=== PATIENT | male | born 1935 | race Asian ===

== ENCOUNTER → 2018-10-09 | Outpatient (CLI) | payer MEDICARE, OTHER ==
[~2018-10-09] MED LIST: AMLO5TAB13 PO; NAP500T GT; SIMV-8 PO
== END | disposition home or self-care (01) ==
LOC: Rad HDHVI 09:57
PROVIDERS: ATTEND Internal Medicine Cardiovascular Disease
DX: I11.9 Hypertensive heart disease without heart failure (principal); R07.89 Other chest pain
CPT/HCPCS: 93306

== ENCOUNTER → 2018-11-10 | Outpatient (CLI) | payer MEDICARE, OTHER ==
[~2018-11-10] VITALS: Ht 172.7 cm; Wt 77.1 kg
== END | disposition home or self-care (01) ==
LOC: Rad HDHVI 09:56
PROVIDERS: ATTEND Internal Medicine Cardiovascular Disease
DX: E78.00 Pure hypercholesterolemia, unspecified (principal); I11.9 Hypertensive heart disease without heart failure
CPT/HCPCS: 78452; 93017; 96374; A9500

== ENCOUNTER → 2019-03-30 | Outpatient (CLI) | payer MEDICARE, OTHER ==
[~2019-03-30] MED LIST changes: -AMLO5TAB13 PO; +AMLO5TAB15 PO
== END | disposition home or self-care (01) ==
LOC: Rad HDHVI 10:00
PROVIDERS: ATTEND Internal Medicine Cardiovascular Disease
DX: K42.9 Umbilical hernia without obstruction or gangrene (principal); K57.30 Diverticulosis of large intestine without perforation or abscess without bleeding
CPT/HCPCS: 74176

== ENCOUNTER → 2020-06-09 | Outpatient (CLI) | payer MEDICARE, OTHER ==
[2020-06-09 12:00] LABS: Basophils # (auto) 0.1 10 ^3/uL (0-0.2); Basophils % (auto) 1.5 % (0.0-2.0); Eosinophils # (auto) 0.6 10 ^3/uL (0-0.8); Eosinophils % (auto) 9.1 % (0.0-7.0); Hematocrit 40.2 % (41.0-53.0); Hemoglobin 13.4 g/dL (13.5-17.5); Lymphocytes # (auto) 1.9 10 ^3/uL (0.4-5.4); Lymphocytes % (auto) 29.6 % (10.0-50.0); Mean Corpuscular Hemoglobin 33.4 pg (28.0-32.0); Mean Corpuscular Hgb Conc. 33.2 g/dL (32.0-36.0); Mean Corpuscular Volume 100.6 fL (80.0-100.0); Monocytes # (auto) 0.6 10 ^3/uL (0-1.3); Monocytes % (auto) 10.1 % (0.0-12.0); Neutrophils # (auto) 3.1 10 ^3/uL (1.6-8.6); Neutrophils % (auto) 49.7 % (37.0-80.0); Nucleated Red Blood Cells % 0.1 %; Platelet Count (auto) 265 10^3/uL (140-450); Red Cell Distribution Width 13.1 % (11.8-14.3); White Blood Cell 6.3 10^3/uL (4.4-10.8)
[2020-06-09 12:03] LABS: Urine Blood Negative /uL (Negative); Urine Specific Gravity 1.016 (1.001-1.035)
[2020-06-09 14:02] LABS: Alanine Aminotransferase 29 U/L (16-61); Alkaline Phosphatase 42 U/L (45-117); Anion Gap 7 (5-15); Aspartate Aminotransferase 19 U/L (15-37); Blood Urea Nitrogen 24 mg/dL (7-18); Carbon Dioxide 27 mmol/L (21-32); Chloride 105 mmol/L (98-107); GFR African American 49 mL/min; GFR Non-African American 41 mL/min; Glucose 99 mg/dL (74-106); Potassium 3.9 mmol/L (3.5-5.1); Sodium 139 mmol/L (136-145)
[2020-06-09 14:03] LABS: Albumin 4.2 g/dL (3.4-5.0); Bilirubin, Total 0.7 mg/dL (0.2-1.0); Calcium 9.5 mg/dL (8.5-10.1); Cholesterol 153 mg/dL (< 200); HDL Cholesterol 66 mg/dL (40-59); LDL Cholesterol 77 mg/dL (< 100); Total Protein 8.1 g/dL (6.4-8.2); Triglycerides 156 mg/dL (< 150)
[2020-06-09 15:02] LABS: Free T4 (Free Thyroxine) 0.87 ng/dL (0.89-1.76)
[2020-06-09 15:03] LABS: Prostate Specific Antigen 0.08 ng/mL (0.0-4.0)
== END | disposition home or self-care (01) ==
LOC: LAB 09:28
PROVIDERS: ATTEND Internal Medicine Cardiovascular Disease
DX: C61 Malignant neoplasm of prostate (principal); D51.3 Other dietary vitamin B12 deficiency anemia; E11.9 Type 2 diabetes mellitus without complications; D64.9 Anemia, unspecified; E55.9 Vitamin D deficiency, unspecified; I10 Essential (primary) hypertension; R00.2 Palpitations; R53.1 Weakness; R30.0 Dysuria
CPT/HCPCS: 36415; 80053; 80061; 81003; 82306; 82607; 83036; 84153; 84403; 84439; 84443; 85025

== ENCOUNTER → 2020-07-21 | Outpatient (CLI) | payer MEDICARE, OTHER | END | disposition home or self-care (01) | LOC: Rad HDHVI 11:00 | PROVIDERS: ATTEND Internal Medicine Cardiovascular Disease | DX: I08.0 Rheumatic disorders of both mitral and aortic valves (principal); R07.89 Other chest pain; R06.02 Shortness of breath | CPT/HCPCS: 93306 ==

== ENCOUNTER → 2020-08-06 | Outpatient (CLI) | payer MEDICARE, OTHER ==
[~2020-08-06] MED LIST changes: +AMLO-489 PO; -AMLO5TAB15 PO; +KETOROLAC TROMETH 30 MG/ML 1ML VIAL IV ONE; +KETOROLAC TROMETH 30 MG/ML 1ML VIAL IV PRN; +KETOROLAC TROMETH 60MG/2ML VIAL ONE; +PIPERACILLIN-TAZO 4.5GM 100 ML IV ONE; +READI-CAT 2 (BARIUM SULF)(VANILLA SMOOTHIE) 450ML ONE
[2020-08-06 10:35] VITALS: BP 162/86
[2020-08-06 16:00] VITALS: BP 151/70
== END | disposition home or self-care (01) ==
LOC: Rad HDHVI 10:36
PROVIDERS: ATTEND Internal Medicine Cardiovascular Disease
DX: K57.30 Diverticulosis of large intestine without perforation or abscess without bleeding (principal); K42.9 Umbilical hernia without obstruction or gangrene; R59.0 Localized enlarged lymph nodes
CPT/HCPCS: 74176; 96365; 96366; 96375; G0463; J1885; J2543

== ENCOUNTER 2020-08-21 09:22 | Inpatient (IN) | payer MEDICARE, OTHER ==
[~2020-08-21] VITALS: Ht 172.7 cm; Wt 70.6 kg
[~2020-08-21 09:22] MED LIST changes: -KETOROLAC TROMETH 30 MG/ML 1ML VIAL IV ONE; -KETOROLAC TROMETH 30 MG/ML 1ML VIAL IV PRN; -KETOROLAC TROMETH 60MG/2ML VIAL ONE; -PIPERACILLIN-TAZO 4.5GM 100 ML IV ONE; -READI-CAT 2 (BARIUM SULF)(VANILLA SMOOTHIE) 450ML ONE
[2020-08-21 10:13] LABS: Basophils # (auto) 0 10 ^3/uL (0-0.2); Eosinophils # (auto) 0 10 ^3/uL (0-0.8); Hemoglobin 13.1 g/dL (13.5-17.5); Monocytes % (auto) 6.5 % (0.0-12.0); Red Cell Distribution Width 13.4 % (11.8-14.3)
[2020-08-21 10:15] LABS: Basophils % (auto) 0.5 % (0.0-2.0); Hematocrit 38.9 % (41.0-53.0); Lymphocytes # (auto) 0.6 10 ^3/uL (0.4-5.4); Lymphocytes % (auto) 6.6 % (10.0-50.0); Mean Corpuscular Hemoglobin 33.6 pg (28.0-32.0); Mean Corpuscular Hgb Conc. 33.8 g/dL (32.0-36.0); Mean Corpuscular Volume 99.5 fL (80.0-100.0); Monocytes # (auto) 0.6 10 ^3/uL (0-1.3); Neutrophils # (auto) 7.3 10 ^3/uL (1.6-8.6); Neutrophils % (auto) 86.4 % (37.0-80.0); Platelet Count (auto) 222 10^3/uL (140-450); Red Blood Cells 3.91 10^6/uL (4.5-5.90); White Blood Cell 8.4 10^3/uL (4.4-10.8)
[2020-08-21 10:32] LABS: INR 1.04 (0.9-1.15); Partial Thromboplastin Time 32.9 sec (23.0-31.2)
[2020-08-21 10:41] LABS: Albumin 3.6 g/dL (3.4-5.0); Calcium 8.6 mg/dL (8.5-10.1); Magnesium 2.5 mg/dL (1.6-2.6); Potassium 3.8 mmol/L (3.5-5.1)
[2020-08-21 10:51] LABS: BUN/Creatinine Ratio 15.9; Bilirubin, Total 0.5 mg/dL (0.2-1.0); CRP High Sensitivity 8.54 mg/dL (< 0.3); Total Protein 8.4 g/dL (6.4-8.2)
[2020-08-21] MEDS ORDERED: ACETAMINOPHEN 325 MG TAB PO PRN (11:00)
[2020-08-21] MEDS ORDERED: AZITHROMYCIN 500MG/ 250ML 250 ML IV ONE (11:00)
[2020-08-21] MEDS ORDERED: cefTRIAXone 1GM/50ML D5W 50 ML IV ONE (11:00)
[2020-08-21 11:26] LABS: Urine Bacteria NONE SEEN /hpf (None Seen); Urine Blood Negative /uL (Negative); Urine Specific Gravity 1.014 (1.001-1.035); Urine WBC 6 /hpf (0 - 3); Urine WBC Clumps PRESENT /hpf (None Seen)
[2020-08-21] MEDS ORDERED: LIDOCAINE 2% (LOCAL ANESTH.) PF 5ml SDV ONE (13:05)
[2020-08-21] MEDS ORDERED: cefTRIAXone SOD 1,000 MG VL ONE (13:05)
[2020-08-21] MEDS ORDERED: cefTRIAXone W LIDOCAINE 1 GM IM IM ONE (13:15)
[2020-08-21] MEDS ORDERED: NITROGLYCERIN 0.4 MG SL TAB SL PRN (14:00)
[2020-08-21] MEDS ORDERED: MORPHINE SULF INJ 2 MG/ML SYRINGE 1ML IV PRN (14:00)
[2020-08-21] MEDS ORDERED: ASCORBIC ACID 500 MG TAB PO ONE (14:15)
[2020-08-21] MEDS ORDERED: IVERMECTIN 3 MG TAB PO SCH (15:00)
[2020-08-21 16:00] VITALS: BP 122/68
[2020-08-21] MEDS: ACYCLOVIR 400 MG TAB PO SCH ×2 (17:49→21:28)
[2020-08-21] MEDS: DOXYCYCLINE 100 MG TAB/CAP PO SCH (21:28)
[2020-08-21] MEDS: BUDESONIDE (INHALATION) 0.5 MG/2 ML NEB NEB SCH (22:41)
[2020-08-21] MEDS: HYDROcodone-ACET 10/325MG TAB PO PRN (23:19)
[2020-08-22] VITALS: BP 133/68
[2020-08-22] MEDS: ACYCLOVIR 400 MG TAB PO SCH ×5 (05:20→22:04)
[2020-08-22] MEDS: HYDROcodone-ACET 10/325MG TAB PO PRN ×2 (05:44→20:43)
[2020-08-22] MEDS: BUDESONIDE (INHALATION) 0.5 MG/2 ML NEB NEB SCH (07:25)
[2020-08-22 08:00] VITALS: BP 148/83
[2020-08-22] MEDS: DOXYCYCLINE 100 MG TAB/CAP PO SCH ×2 (09:39→22:04)
[2020-08-22] MEDS: ZINC SULFATE 220mg CAP or TAB PO SCH (09:39)
[2020-08-22] MEDS: CHOLECALCIFEROL (VITD3) 2,000 UNIT CAP/TAB PO SCH (09:40)
[2020-08-22] MEDS ORDERED: PATIENTS OWN MEDICATION PO SCH (10:00)
[2020-08-22 16:00] VITALS: BP 129/75
[2020-08-22] MEDS ORDERED: REMDESIVIR PER PHARMACY 0 ML IV SCH (16:45)
[2020-08-22] MEDS ORDERED: REMDESIVIR 200 MG in NS 210ml LOADING DOSE ADULT IV ONE (20:00)
[2020-08-22] MEDS: BUDESONIDE (INHALATION) 180 MCG IH IN SCH (22:00)
[2020-08-22] MEDS ORDERED: PATIENTS OWN MEDICATION (PULMICORT 360 MCG) IN SCH (22:00)
[2020-08-23] VITALS: BP 136/75
[2020-08-23] MEDS: ACYCLOVIR 400 MG TAB PO SCH ×5 (06:23→22:17)
[2020-08-23] MEDS: HYDROcodone-ACET 10/325MG TAB PO PRN ×2 (06:23→12:37)
[2020-08-23 07:06] LABS: Potassium 3.2 mmol/L (3.5-5.1)
[2020-08-23 07:13] LABS: Albumin 2.9 g/dL (3.4-5.0); BUN/Creatinine Ratio 22.4; Bilirubin, Total 0.8 mg/dL (0.2-1.0); Calcium 8.1 mg/dL (8.5-10.1); Total Protein 7.5 g/dL (6.4-8.2)
[2020-08-23 07:32] VITALS: BP 127/64
[2020-08-23] MEDS: DOXYCYCLINE 100 MG TAB/CAP PO SCH ×2 (09:46→22:17)
[2020-08-23] MEDS: CHOLECALCIFEROL (VITD3) 2,000 UNIT CAP/TAB PO SCH (09:46)
[2020-08-23] MEDS: ZINC SULFATE 220mg CAP or TAB PO SCH (09:46)
[2020-08-23] MEDS: IVERMECTIN 3 MG TAB PO SCH (09:47)
[2020-08-23] MEDS: BUDESONIDE (INHALATION) 180 MCG IH IN SCH ×2 (10:00→18:53)
[2020-08-23] MEDS: REMDESIVIR 100mg 100 MG in SODIUM CHL 0.9% 230 ML IV SCH (14:41)
[2020-08-23 16:00] VITALS: BP 143/75
[2020-08-24] VITALS: BP 137/77
[2020-08-24] MEDS: ACYCLOVIR 400 MG TAB PO SCH ×5 (06:40→21:29)
[2020-08-24 07:40] LABS: Albumin 2.7 g/dL (3.4-5.0); BUN/Creatinine Ratio 25.5; Calcium 8.4 mg/dL (8.5-10.1); Potassium 3.3 mmol/L (3.5-5.1)
[2020-08-24 07:43] LABS: Bilirubin, Total 1.1 mg/dL (0.2-1.0); Total Protein 7.1 g/dL (6.4-8.2)
[2020-08-24 08:00] VITALS: BP 127/81
[2020-08-24] MEDS: IVERMECTIN 3 MG TAB PO SCH (09:39)
[2020-08-24] MEDS: ZINC SULFATE 220mg CAP or TAB PO SCH (09:39)
[2020-08-24] MEDS: DOXYCYCLINE 100 MG TAB/CAP PO SCH ×2 (09:41→21:30)
[2020-08-24] MEDS: CHOLECALCIFEROL (VITD3) 2,000 UNIT CAP/TAB PO SCH (09:41)
[2020-08-24] MEDS: BUDESONIDE (INHALATION) 180 MCG IH IN SCH ×2 (11:00→21:02)
[2020-08-24] MEDS ORDERED: LABETALOL HCL 5 MG/ML 4ML SYRINGE IV ONE ×2 (11:55→12:00)
[2020-08-24] MEDS ORDERED: METOPROLOL TARTRATE 50 MG TAB PO ONE (12:15)
[2020-08-24] MEDS: REMDESIVIR 100mg 100 MG in SODIUM CHL 0.9% 230 ML IV SCH (13:59)
[2020-08-24 16:02] VITALS: BP 114/66
[2020-08-24] MEDS: IPRATROPIUM BROM 0.5 MG/2.5ML INH SOL NEB SCH (21:01)
[2020-08-25] VITALS: BP 136/75
[2020-08-25] MEDS: LORazepam 2MG/ML-1ML VIAL IV PRN ×2 (00:44→22:01)
[2020-08-25] MEDS: ACYCLOVIR 400 MG TAB PO SCH ×5 (06:00→21:40)
[2020-08-25] MEDS: IPRATROPIUM BROM 0.5 MG/2.5ML INH SOL NEB SCH ×3 (06:25→19:11)
[2020-08-25] MEDS: BUDESONIDE (INHALATION) 180 MCG IH IN SCH ×2 (06:25→19:17)
[2020-08-25 07:17] LABS: Basophils # (auto) 0 10 ^3/uL (0-0.2); Basophils % (auto) 0.1 % (0.0-2.0); Eosinophils # (auto) 0 10 ^3/uL (0-0.8)
[2020-08-25 07:20] LABS: Hematocrit 40.1 % (41.0-53.0); Hemoglobin 13.6 g/dL (13.5-17.5); Lymphocytes # (auto) 0.8 10 ^3/uL (0.4-5.4); Lymphocytes % (auto) 8.3 % (10.0-50.0); Mean Corpuscular Hemoglobin 33.3 pg (28.0-32.0); Mean Corpuscular Hgb Conc. 33.9 g/dL (32.0-36.0); Mean Corpuscular Volume 98.2 fL (80.0-100.0); Monocytes # (auto) 0.8 10 ^3/uL (0-1.3); Monocytes % (auto) 7.8 % (0.0-12.0); Neutrophils # (auto) 8.4 10 ^3/uL (1.6-8.6); Neutrophils % (auto) 83.8 % (37.0-80.0); Platelet Count (auto) 262 10^3/uL (140-450); Red Blood Cells 4.08 10^6/uL (4.5-5.90); Red Cell Distribution Width 13.2 % (11.8-14.3)
[2020-08-25 07:30] VITALS: BP 122/76
[2020-08-25 07:47] LABS: Potassium 3.4 mmol/L (3.5-5.1)
[2020-08-25 08:05] LABS: Albumin 2.9 g/dL (3.4-5.0); Bilirubin, Total 1.2 mg/dL (0.2-1.0); Calcium 8.6 mg/dL (8.5-10.1); Total Protein 7.6 g/dL (6.4-8.2)
[2020-08-25] MEDS: ZINC SULFATE 220mg CAP or TAB PO SCH (09:57)
[2020-08-25] MEDS: DexAMETHasone SOD PHOS 10MG/1ML VIAL INJ IV SCH (09:57)
[2020-08-25] MEDS: IVERMECTIN 3 MG TAB PO SCH (09:58)
[2020-08-25] MEDS: DOXYCYCLINE 100 MG TAB/CAP PO SCH ×2 (09:59→21:40)
[2020-08-25] MEDS: CHOLECALCIFEROL (VITD3) 2,000 UNIT CAP/TAB PO SCH (10:00)
[2020-08-25] MEDS: REMDESIVIR 100mg 100 MG in SODIUM CHL 0.9% 230 ML IV SCH (15:18)
[2020-08-25 15:33] VITALS: BP 120/74
[2020-08-25] MEDS ORDERED: POTASSIUM EFFERVESENT TAB 25 MEQ GT ONE (15:45)
[2020-08-26] VITALS: BP 143/88
[2020-08-26] MEDS: IPRATROPIUM BROM 0.5 MG/2.5ML INH SOL NEB SCH ×2 (06:00→14:00)
[2020-08-26] MEDS: ACYCLOVIR 400 MG TAB PO SCH ×5 (06:25→21:20)
[2020-08-26] MEDS: BUDESONIDE (INHALATION) 180 MCG IH IN SCH ×2 (06:30→19:53)
[2020-08-26 08:00] VITALS: BP 140/66
[2020-08-26 08:39] LABS: Potassium 3.5 mmol/L (3.5-5.1)
[2020-08-26 08:45] LABS: Albumin 2.7 g/dL (3.4-5.0); BUN/Creatinine Ratio 33.8; Calcium 8.6 mg/dL (8.5-10.1); Total Protein 7.2 g/dL (6.4-8.2)
[2020-08-26] MEDS: CHOLECALCIFEROL (VITD3) 2,000 UNIT CAP/TAB PO SCH (10:14)
[2020-08-26] MEDS: DOXYCYCLINE 100 MG TAB/CAP PO SCH (10:14)
[2020-08-26] MEDS: DexAMETHasone SOD PHOS 10MG/1ML VIAL INJ IV SCH (10:15)
[2020-08-26] MEDS: ZINC SULFATE 220mg CAP or TAB PO SCH (10:15)
[2020-08-26] MEDS: IVERMECTIN 3 MG TAB PO SCH (10:15)
[2020-08-26 13:00] VITALS: BP 128/69
[2020-08-26 16:00] VITALS: BP 121/70
[2020-08-26] MEDS: REMDESIVIR 100mg 100 MG in SODIUM CHL 0.9% 230 ML IV SCH (16:33)
[2020-08-26 22:00] VITALS: BP 148/78
[2020-08-27] VITALS (8 sets, daily range): BP systolic 130–156; BP diastolic 70–89
[2020-08-27] MEDS: ACYCLOVIR 400 MG TAB PO SCH ×5 (05:52→21:12)
[2020-08-27] MEDS: IPRATROPIUM BROM 0.5 MG/2.5ML INH SOL NEB SCH ×3 (06:05→13:15)
[2020-08-27] MEDS: BUDESONIDE (INHALATION) 180 MCG IH IN SCH ×2 (06:15→19:14)
[2020-08-27] MEDS: DexAMETHasone SOD PHOS 10MG/1ML VIAL INJ IV SCH (09:39)
[2020-08-27] MEDS: ZINC SULFATE 220mg CAP or TAB PO SCH (09:39)
[2020-08-27] MEDS: IVERMECTIN 3 MG TAB PO SCH (09:41)
[2020-08-27] MEDS: CHOLECALCIFEROL (VITD3) 2,000 UNIT CAP/TAB PO SCH (09:42)
[2020-08-27] MEDS: HYDROcodone-ACET 10/325MG TAB PO PRN (21:12)
[2020-08-27] MEDS: LORazepam 2MG/ML-1ML VIAL IV PRN (22:10)
[2020-08-27] MEDS ORDERED: ALPR0.25 PO (23:35)
[2020-08-28 05:22] VITALS: BP 118/67
[2020-08-28] MEDS: ACYCLOVIR 400 MG TAB PO SCH ×5 (05:29→22:16)
[2020-08-28] MEDS: IPRATROPIUM BROM 0.5 MG/2.5ML INH SOL NEB SCH ×3 (06:06→14:04)
[2020-08-28] MEDS: BUDESONIDE (INHALATION) 180 MCG IH IN SCH ×3 (06:06→19:24)
[2020-08-28 06:43] LABS: Basophils # (auto) 0 10 ^3/uL (0-0.2); Basophils % (auto) 0.1 % (0.0-2.0); Eosinophils # (auto) 0 10 ^3/uL (0-0.8); Hematocrit 36.7 % (41.0-53.0); Hemoglobin 12.4 g/dL (13.5-17.5); Lymphocytes # (auto) 0.6 10 ^3/uL (0.4-5.4); Lymphocytes % (auto) 5.5 % (10.0-50.0); Mean Corpuscular Hemoglobin 33.6 pg (28.0-32.0); Mean Corpuscular Hgb Conc. 33.7 g/dL (32.0-36.0); Mean Corpuscular Volume 99.7 fL (80.0-100.0); Monocytes % (auto) 10.1 % (0.0-12.0); Neutrophils # (auto) 8.7 10 ^3/uL (1.6-8.6); Neutrophils % (auto) 84.3 % (37.0-80.0); Nucleated Red Blood Cells % 0.2 %; Platelet Count (auto) 287 10^3/uL (140-450); Red Blood Cells 3.68 10^6/uL (4.5-5.90); Red Cell Distribution Width 13.3 % (11.8-14.3); White Blood Cell 10.3 10^3/uL (4.4-10.8)
[2020-08-28 06:59] LABS: Albumin 2.6 g/dL (3.4-5.0); Calcium 8.3 mg/dL (8.5-10.1); Potassium 3.6 mmol/L (3.5-5.1)
[2020-08-28 07:03] LABS: BUN/Creatinine Ratio 33.3; Bilirubin, Total 1.2 mg/dL (0.2-1.0); Total Protein 6.8 g/dL (6.4-8.2)
[2020-08-28 09:00] VITALS: BP 140/79
[2020-08-28] MEDS: ZINC SULFATE 220mg CAP or TAB PO SCH (10:16)
[2020-08-28] MEDS: IVERMECTIN 3 MG TAB PO SCH (10:16)
[2020-08-28] MEDS: DexAMETHasone SOD PHOS 10MG/1ML VIAL INJ IV SCH (10:16)
[2020-08-28] MEDS: CHOLECALCIFEROL (VITD3) 2,000 UNIT CAP/TAB PO SCH (10:17)
[2020-08-28 12:53] VITALS: BP 144/80
[2020-08-28 17:00] VITALS: BP 132/85
[2020-08-28 20:00] VITALS: BP 128/85
[2020-08-29 05:00] VITALS: BP 149/89
[2020-08-29] MEDS: IPRATROPIUM BROM 0.5 MG/2.5ML INH SOL NEB SCH ×3 (06:03→19:35)
[2020-08-29] MEDS: ACYCLOVIR 400 MG TAB PO SCH ×5 (06:35→21:16)
[2020-08-29 09:00] VITALS: BP 127/74
[2020-08-29] MEDS: IVERMECTIN 3 MG TAB PO SCH (09:36)
[2020-08-29] MEDS: ZINC SULFATE 220mg CAP or TAB PO SCH (09:36)
[2020-08-29] MEDS: CHOLECALCIFEROL (VITD3) 2,000 UNIT CAP/TAB PO SCH (09:36)
[2020-08-29] MEDS: DexAMETHasone SOD PHOS 10MG/1ML VIAL INJ IV SCH (09:37)
[2020-08-29] MEDS: ALPRAZolam 0.25 MG TAB PO PRN ×2 (10:57→21:16)
[2020-08-29 13:00] VITALS: BP 135/90
[2020-08-29 16:18] VITALS: BP 135/90
[2020-08-29 17:00] VITALS: BP 117/75
[2020-08-29] MEDS: BUDESONIDE (INHALATION) 180 MCG IH IN SCH (18:58)
[2020-08-29 20:00] VITALS: BP 133/85
[2020-08-30] MEDS: ALPRAZolam 0.25 MG TAB PO PRN ×2 (04:04→09:30)
[2020-08-30 05:00] VITALS: BP 143/83
[2020-08-30] MEDS: ACYCLOVIR 400 MG TAB PO SCH ×5 (05:33→21:33)
[2020-08-30] MEDS: IPRATROPIUM BROM 0.5 MG/2.5ML INH SOL NEB SCH ×2 (07:15→19:14)
[2020-08-30] MEDS: BUDESONIDE (INHALATION) 180 MCG IH IN SCH ×2 (07:15→19:15)
[2020-08-30 09:00] VITALS: BP 140/86
[2020-08-30] MEDS: CHOLECALCIFEROL (VITD3) 2,000 UNIT CAP/TAB PO SCH (09:22)
[2020-08-30] MEDS: ZINC SULFATE 220mg CAP or TAB PO SCH (09:23)
[2020-08-30] MEDS: DexAMETHasone SOD PHOS 10MG/1ML VIAL INJ IV SCH (09:30)
[2020-08-30 13:00] VITALS: BP 135/81
[2020-08-30 17:00] VITALS: BP 131/74
[2020-08-30 20:00] VITALS: BP 134/75
[2020-08-31] MEDS: ALPRAZolam 0.25 MG TAB PO PRN ×3 (04:22→21:12)
[2020-08-31 05:00] VITALS: BP 154/89
[2020-08-31] MEDS: ACYCLOVIR 400 MG TAB PO SCH ×5 (05:40→21:12)
[2020-08-31] MEDS: IPRATROPIUM BROM 0.5 MG/2.5ML INH SOL NEB SCH ×3 (06:30→22:15)
[2020-08-31] MEDS: BUDESONIDE (INHALATION) 180 MCG IH IN SCH ×2 (06:30→22:15)
[2020-08-31 08:57] VITALS: BP 150/79
[2020-08-31] MEDS: ZINC SULFATE 220mg CAP or TAB PO SCH (09:32)
[2020-08-31] MEDS: CHOLECALCIFEROL (VITD3) 2,000 UNIT CAP/TAB PO SCH (09:32)
[2020-08-31] MEDS: DexAMETHasone SOD PHOS 10MG/1ML VIAL INJ IV SCH (09:53)
[2020-08-31 13:00] VITALS: BP 149/78
[2020-08-31 14:21] LABS: Basophils # (auto) 0 10 ^3/uL (0-0.2); Basophils % (auto) 0.4 % (0.0-2.0); Eosinophils # (auto) 0 10 ^3/uL (0-0.8); Eosinophils % (auto) 0.1 % (0.0-7.0); Hematocrit 35.8 % (41.0-53.0); Hemoglobin 11.9 g/dL (13.5-17.5); Lymphocytes # (auto) 0.3 10 ^3/uL (0.4-5.4); Lymphocytes % (auto) 2.9 % (10.0-50.0); Mean Corpuscular Hgb Conc. 33.3 g/dL (32.0-36.0); Mean Corpuscular Volume 98.8 fL (80.0-100.0); Monocytes # (auto) 0.6 10 ^3/uL (0-1.3); Monocytes % (auto) 4.7 % (0.0-12.0); Neutrophils # (auto) 10.9 10 ^3/uL (1.6-8.6); Neutrophils % (auto) 91.9 % (37.0-80.0); Nucleated Red Blood Cells % 0.1 %; Platelet Count (auto) 227 10^3/uL (140-450); Red Blood Cells 3.62 10^6/uL (4.5-5.90); Red Cell Distribution Width 13.4 % (11.8-14.3); White Blood Cell 11.9 10^3/uL (4.4-10.8)
[2020-08-31 14:41] LABS: Albumin 2.6 g/dL (3.4-5.0); Calcium 8.1 mg/dL (8.5-10.1); Potassium 4.1 mmol/L (3.5-5.1)
[2020-08-31 14:43] LABS: BUN/Creatinine Ratio 34.4; Bilirubin, Total 1.1 mg/dL (0.2-1.0); Total Protein 6.4 g/dL (6.4-8.2)
[2020-08-31 17:00] VITALS: BP 147/63
[2020-08-31] MEDS: Ensure HIGH Protein Chocolate 8oz Bottle PO SCH (18:00)
[2020-08-31 20:00] VITALS: BP 141/47
[2020-09-01] VITALS (7 sets, daily range): BP systolic 124–151; BP diastolic 70–84
[2020-09-01] MEDS: ALPRAZolam 0.25 MG TAB PO PRN ×3 (03:32→21:21)
[2020-09-01] MEDS: ACYCLOVIR 400 MG TAB PO SCH ×5 (05:48→21:20)
[2020-09-01] MEDS: BUDESONIDE (INHALATION) 180 MCG IH IN SCH ×2 (05:55→22:31)
[2020-09-01] MEDS: IPRATROPIUM BROM 0.5 MG/2.5ML INH SOL NEB SCH ×3 (05:55→22:31)
[2020-09-01] MEDS: Ensure HIGH Protein Chocolate 8oz Bottle PO SCH ×3 (08:15→17:46)
[2020-09-01] MEDS: CHOLECALCIFEROL (VITD3) 2,000 UNIT CAP/TAB PO SCH (09:05)
[2020-09-01] MEDS: DexAMETHasone SOD PHOS 10MG/1ML VIAL INJ IV SCH (09:06)
[2020-09-01] MEDS: ZINC SULFATE 220mg CAP or TAB PO SCH (09:09)
[2020-09-02 05:00] VITALS: BP 161/91
[2020-09-02] MEDS: ACYCLOVIR 400 MG TAB PO SCH ×5 (05:25→21:05)
[2020-09-02] MEDS: BUDESONIDE (INHALATION) 180 MCG IH IN SCH ×2 (06:57→20:20)
[2020-09-02] MEDS: IPRATROPIUM BROM 0.5 MG/2.5ML INH SOL NEB SCH ×3 (06:57→22:55)
[2020-09-02] MEDS: Ensure HIGH Protein Chocolate 8oz Bottle PO SCH ×3 (08:26→17:51)
[2020-09-02 08:30] VITALS: BP 154/84
[2020-09-02] MEDS: CHOLECALCIFEROL (VITD3) 2,000 UNIT CAP/TAB PO SCH (10:19)
[2020-09-02] MEDS: DexAMETHasone SOD PHOS 4 MG/1ML SDV INJ IV SCH (10:22)
[2020-09-02] MEDS: ZINC SULFATE 220mg CAP or TAB PO SCH (10:22)
[2020-09-02 12:30] VITALS: BP 160/83
[2020-09-02] MEDS: ALPRAZolam 0.25 MG TAB PO PRN ×2 (13:06→19:48)
[2020-09-02 17:00] VITALS: BP 122/82
[2020-09-03 05:00] VITALS: BP 131/76
[2020-09-03] MEDS: ACYCLOVIR 400 MG TAB PO SCH ×5 (05:19→22:04)
[2020-09-03] MEDS: IPRATROPIUM BROM 0.5 MG/2.5ML INH SOL NEB SCH ×3 (07:10→22:57)
[2020-09-03] MEDS: Ensure HIGH Protein Chocolate 8oz Bottle PO SCH ×3 (07:10→18:41)
[2020-09-03] MEDS: BUDESONIDE (INHALATION) 180 MCG IH IN SCH ×2 (07:10→19:00)
[2020-09-03 08:51] VITALS: BP 156/87
[2020-09-03] MEDS: DexAMETHasone SOD PHOS 4 MG/1ML SDV INJ IV SCH (09:41)
[2020-09-03] MEDS: ZINC SULFATE 220mg CAP or TAB PO SCH (09:41)
[2020-09-03] MEDS: CHOLECALCIFEROL (VITD3) 2,000 UNIT CAP/TAB PO SCH (09:41)
[2020-09-03] MEDS: ALPRAZolam 0.25 MG TAB PO PRN ×2 (12:22→22:04)
[2020-09-03 13:25] VITALS: BP 195/93
[2020-09-03 14:50] VITALS: BP 142/84
[2020-09-03 17:00] VITALS: BP 140/82
[2020-09-03 22:00] VITALS: BP 148/79
[2020-09-04 05:00] VITALS: BP 126/79
[2020-09-04] MEDS: ALPRAZolam 0.25 MG TAB PO PRN ×2 (05:55→16:50)
[2020-09-04] MEDS: ACYCLOVIR 400 MG TAB PO SCH ×2 (05:56→09:59)
[2020-09-04] MEDS: IPRATROPIUM BROM 0.5 MG/2.5ML INH SOL NEB SCH ×3 (07:04→19:26)
[2020-09-04] MEDS: BUDESONIDE (INHALATION) 180 MCG IH IN SCH ×2 (07:07→14:30)
[2020-09-04 08:30] VITALS: BP 157/94
[2020-09-04] MEDS: Ensure HIGH Protein Chocolate 8oz Bottle PO SCH ×3 (08:54→18:07)
[2020-09-04] MEDS: DexAMETHasone SOD PHOS 4 MG/1ML SDV INJ IV SCH (09:58)
[2020-09-04] MEDS: CHOLECALCIFEROL (VITD3) 2,000 UNIT CAP/TAB PO SCH (09:59)
[2020-09-04] MEDS: ZINC SULFATE 220mg CAP or TAB PO SCH (09:59)
[2020-09-04 12:48] VITALS: BP 134/81
[2020-09-04 13:14] VITALS: BP 134/81
[2020-09-04 16:36] VITALS: BP 131/75
[2020-09-04 21:30] VITALS: BP 129/73
[2020-09-05] MEDS: ALPRAZolam 0.25 MG TAB PO PRN ×3 (01:20→19:30)
[2020-09-05 05:00] VITALS: BP 125/71
[2020-09-05] MEDS: IPRATROPIUM BROM 0.5 MG/2.5ML INH SOL NEB SCH (07:35)
[2020-09-05] MEDS: BUDESONIDE (INHALATION) 180 MCG IH IN SCH ×2 (07:35→22:32)
[2020-09-05 08:32] VITALS: BP 141/91
[2020-09-05 08:49] VITALS: BP 141/91
[2020-09-05] MEDS: Ensure HIGH Protein Chocolate 8oz Bottle PO SCH ×3 (10:50→18:38)
[2020-09-05] MEDS: CHOLECALCIFEROL (VITD3) 2,000 UNIT CAP/TAB PO SCH (10:51)
[2020-09-05] MEDS: ZINC SULFATE 220mg CAP or TAB PO SCH (10:51)
[2020-09-05 12:46] VITALS: BP 139/88
[2020-09-05] MEDS: IPRATROPIUM BROMIDE HFA AER IN SCH ×2 (14:35→22:32)
[2020-09-05 16:46] VITALS: BP 126/75
[2020-09-05 22:00] VITALS: BP 117/71
[2020-09-06] MEDS: ALPRAZolam 0.25 MG TAB PO PRN ×2 (01:30→21:44)
[2020-09-06 05:00] VITALS: BP 127/82
[2020-09-06] MEDS: IPRATROPIUM BROMIDE HFA AER IN SCH ×2 (07:00→19:54)
[2020-09-06] MEDS: BUDESONIDE (INHALATION) 180 MCG IH IN SCH ×2 (07:00→19:58)
[2020-09-06] MEDS: Ensure HIGH Protein Chocolate 8oz Bottle PO SCH ×3 (08:09→18:07)
[2020-09-06 09:00] VITALS: BP 129/81
[2020-09-06] MEDS: ZINC SULFATE 220mg CAP or TAB PO SCH (10:05)
[2020-09-06] MEDS: CHOLECALCIFEROL (VITD3) 2,000 UNIT CAP/TAB PO SCH (10:05)
[2020-09-06 13:00] VITALS: BP 121/78
[2020-09-06 17:00] VITALS: BP 111/70
[2020-09-06 22:00] VITALS: BP 130/71
[2020-09-07 05:00] VITALS: BP 111/73
[2020-09-07] MEDS: ALPRAZolam 0.25 MG TAB PO PRN ×2 (06:05→21:27)
[2020-09-07] MEDS: IPRATROPIUM BROMIDE HFA AER IN SCH ×2 (07:10→21:50)
[2020-09-07] MEDS: BUDESONIDE (INHALATION) 180 MCG IH IN SCH ×2 (07:10→21:50)
[2020-09-07] MEDS: Ensure HIGH Protein Chocolate 8oz Bottle PO SCH ×3 (08:36→17:51)
[2020-09-07] MEDS: ZINC SULFATE 220mg CAP or TAB PO SCH (08:36)
[2020-09-07] MEDS: CHOLECALCIFEROL (VITD3) 2,000 UNIT CAP/TAB PO SCH (08:36)
[2020-09-07 09:00] VITALS: BP 99/61
[2020-09-07] MEDS: LACTULOSE 20Gm/30ML SOLN PO PRN (11:37)
[2020-09-07 13:00] VITALS: BP 109/70
[2020-09-07 16:44] VITALS: BP 109/70
[2020-09-07 17:00] VITALS: BP 114/73
[2020-09-07 22:00] VITALS: BP 121/67
[2020-09-08 05:00] VITALS: BP 118/72
[2020-09-08] MEDS: IPRATROPIUM BROMIDE HFA AER IN SCH ×2 (06:30→19:33)
[2020-09-08] MEDS: BUDESONIDE (INHALATION) 180 MCG IH IN SCH ×2 (06:30→19:34)
[2020-09-08] MEDS: ZINC SULFATE 220mg CAP or TAB PO SCH (09:01)
[2020-09-08] MEDS: CHOLECALCIFEROL (VITD3) 2,000 UNIT CAP/TAB PO SCH (09:01)
[2020-09-08] MEDS: Ensure HIGH Protein Chocolate 8oz Bottle PO SCH ×3 (09:02→18:21)
[2020-09-08 13:00] VITALS: BP 132/68
[2020-09-08 16:41] LABS: Basophils # (auto) 0 10 ^3/uL (0-0.2); Eosinophils # (auto) 0.3 10 ^3/uL (0-0.8); Eosinophils % (auto) 2.5 % (0.0-7.0); Lymphocytes # (auto) 0.7 10 ^3/uL (0.4-5.4); Mean Corpuscular Hemoglobin 34.2 pg (28.0-32.0); Mean Corpuscular Hgb Conc. 34.2 g/dL (32.0-36.0); Monocytes # (auto) 1.1 10 ^3/uL (0-1.3)
[2020-09-08 16:44] LABS: Basophils % (auto) 0.4 % (0.0-2.0); Hematocrit 35.3 % (41.0-53.0); Hemoglobin 12.1 g/dL (13.5-17.5); Lymphocytes % (auto) 6.3 % (10.0-50.0); Mean Corpuscular Volume 99.9 fL (80.0-100.0); Neutrophils # (auto) 8.8 10 ^3/uL (1.6-8.6); Neutrophils % (auto) 80.8 % (37.0-80.0); Platelet Count (auto) 190 10^3/uL (140-450); Red Blood Cells 3.53 10^6/uL (4.5-5.90); Red Cell Distribution Width 13.7 % (11.8-14.3); White Blood Cell 10.9 10^3/uL (4.4-10.8)
[2020-09-08 16:58] LABS: Albumin 2.5 g/dL (3.4-5.0); Calcium 8.8 mg/dL (8.5-10.1); Potassium 4.1 mmol/L (3.5-5.1)
[2020-09-08 17:00] VITALS: BP 115/69
[2020-09-08 17:01] LABS: BUN/Creatinine Ratio 29.1
[2020-09-08 17:04] LABS: Bilirubin, Total 0.5 mg/dL (0.2-1.0); Total Protein 6.4 g/dL (6.4-8.2)
[2020-09-08] MEDS: ALPRAZolam 0.25 MG TAB PO PRN (20:31)
[2020-09-08 22:00] VITALS: BP 105/49
[2020-09-09] MEDS: ALPRAZolam 0.25 MG TAB PO PRN ×3 (02:49→20:32)
[2020-09-09 05:00] VITALS: BP 113/65
[2020-09-09] MEDS: IPRATROPIUM BROMIDE HFA AER IN SCH ×2 (06:00→18:54)
[2020-09-09] MEDS: BUDESONIDE (INHALATION) 180 MCG IH IN SCH ×2 (08:42→18:54)
[2020-09-09 09:00] VITALS: BP 111/55
[2020-09-09] MEDS: ZINC SULFATE 220mg CAP or TAB PO SCH (09:32)
[2020-09-09] MEDS: Ensure HIGH Protein Chocolate 8oz Bottle PO SCH ×3 (09:32→18:00)
[2020-09-09] MEDS: CHOLECALCIFEROL (VITD3) 2,000 UNIT CAP/TAB PO SCH (09:33)
[2020-09-09 13:00] VITALS: BP 126/68
[2020-09-09 17:00] VITALS: BP 102/68
[2020-09-09] MEDS: LACTULOSE 20Gm/30ML SOLN PO PRN (17:22)
[2020-09-09 22:00] VITALS: BP 110/62
[2020-09-10 01:52] VITALS: BP 110/62
[2020-09-10] MEDS: ALPRAZolam 0.25 MG TAB PO PRN ×2 (02:33→17:31)
[2020-09-10 05:00] VITALS: BP 100/57
[2020-09-10] MEDS: IPRATROPIUM BROMIDE HFA AER IN SCH ×3 (06:50→20:46)
[2020-09-10] MEDS: BUDESONIDE (INHALATION) 180 MCG IH IN SCH ×2 (06:53→20:46)
[2020-09-10] MEDS: Ensure HIGH Protein Chocolate 8oz Bottle PO SCH ×3 (08:04→17:32)
[2020-09-10 08:58] VITALS: BP 117/80
[2020-09-10] MEDS: CHOLECALCIFEROL (VITD3) 2,000 UNIT CAP/TAB PO SCH (09:33)
[2020-09-10] MEDS: ZINC SULFATE 220mg CAP or TAB PO SCH (09:33)
[2020-09-10 13:52] VITALS: BP 116/75
[2020-09-10 16:49] VITALS: BP 112/69
== END 2020-09-10 20:52 | DRG 177 ==
LOC: EDBD 09:22 → ER 09:22 → TELE 09:23 → TELE-WESTW 14:00
PROVIDERS: ADMIT Internal Medicine Cardiovascular Disease; ATTEND Internal Medicine Cardiovascular Disease
PROC: XW033E5 Introduction of Remdesivir Anti-infective into Peripheral Vein, Percutaneous Approach, New Technology Group 5 (ICD-10-PCS; principal; 2020-08-22)
PROC: 05H933Z Insertion of Infusion Device into Right Brachial Vein, Percutaneous Approach (ICD-10-PCS; 2020-08-27)
PROC: B54MZZA Ultrasonography of Right Upper Extremity Veins, Guidance (ICD-10-PCS; 2020-08-27)
DX: U07.1 COVID-19 (principal); J12.82 Pneumonia due to coronavirus disease 2019; J96.01 Acute respiratory failure with hypoxia; N17.9 Acute kidney failure, unspecified; E78.5 Hyperlipidemia, unspecified; B02.9 Zoster without complications; I10 Essential (primary) hypertension; E87.6 Hypokalemia; R00.0 Tachycardia, unspecified; Z90.49 Acquired absence of other specified parts of digestive tract
CPT/HCPCS: 36415; 36600; 70450; 71045; 74176; 80053; 81001; 82728; 82805; 82962; 83605; 83615; 83735; 83880; 84484; 85025; 85610; 85730; 86141; 87040; 87426; 93005; 94640; 97110; 97116; 97163; 97530; 99291; G0378; J0696; J1100; J2001; J3490

== ENCOUNTER → 2020-11-10 | Outpatient (CLI) | payer MEDICARE, OTHER ==
[~2020-11-10] MED LIST changes: +ALPR0.25 PO; -NAP500T GT
[2020-11-10 12:02] LABS: Basophils # (auto) 0.1 10 ^3/uL (0-0.2); Eosinophils # (auto) 0.3 10 ^3/uL (0-0.8); Eosinophils % (auto) 3.5 % (0.0-7.0); Hematocrit 35.5 % (41.0-53.0); Lymphocytes # (auto) 1.7 10 ^3/uL (0.4-5.4); Lymphocytes % (auto) 21.9 % (10.0-50.0); Mean Corpuscular Hgb Conc. 33.8 g/dL (32.0-36.0); Mean Corpuscular Volume 100.8 fL (80.0-100.0); Monocytes # (auto) 0.8 10 ^3/uL (0-1.3); Monocytes % (auto) 9.9 % (0.0-12.0); Neutrophils # (auto) 4.9 10 ^3/uL (1.6-8.6); Neutrophils % (auto) 63.7 % (37.0-80.0); Nucleated Red Blood Cells % 0.1 %; Platelet Count (auto) 283 10^3/uL (140-450); Red Blood Cells 3.52 10^6/uL (4.5-5.90); Red Cell Distribution Width 14.7 % (11.8-14.3); Urine Blood Negative /uL (Negative); Urine Specific Gravity 1.014 (1.001-1.035); White Blood Cell 7.8 10^3/uL (4.4-10.8)
[2020-11-10 12:15] LABS: Potassium 3.8 mmol/L (3.5-5.1)
[2020-11-10 12:34] LABS: Albumin 3.9 g/dL (3.4-5.0); BUN/Creatinine Ratio 12.7; Bilirubin, Direct 0.1 mg/dL (0-0.2); Bilirubin, Total 0.5 mg/dL (0.2-1.0); Calcium 9.4 mg/dL (8.5-10.1); Total Protein 7.7 g/dL (6.4-8.2)
== END | disposition home or self-care (01) ==
LOC: LAB 09:55
PROVIDERS: ATTEND Internal Medicine Cardiovascular Disease
DX: C61 Malignant neoplasm of prostate (principal); D51.3 Other dietary vitamin B12 deficiency anemia; I10 Essential (primary) hypertension; E11.9 Type 2 diabetes mellitus without complications; E55.9 Vitamin D deficiency, unspecified; D64.9 Anemia, unspecified; R00.2 Palpitations; R53.1 Weakness; R30.0 Dysuria; J84.89 Other specified interstitial pulmonary diseases; I70.0 Atherosclerosis of aorta; Z86.16 Personal history of COVID-19
CPT/HCPCS: 36415; 71046; 80048; 80061; 80076; 81003; 82306; 83036; 84153; 84403; 84443; 85025

== ENCOUNTER → 2021-11-06 | Outpatient (CLI) | payer MEDICARE, OTHER ==
[2021-11-06 15:33] LABS: Basophils # (auto) 0.1 10 ^3/uL (0-0.2); Eosinophils # (auto) 0.4 10 ^3/uL (0-0.8); Hematocrit 42.4 % (41.0-53.0); Hemoglobin 14.1 g/dL (13.5-17.5); Lymphocytes # (auto) 1.7 10 ^3/uL (0.4-5.4); Lymphocytes % (auto) 20.6 % (10.0-50.0); Mean Corpuscular Hemoglobin 32.4 pg (28.0-32.0); Mean Corpuscular Hgb Conc. 33.3 g/dL (32.0-36.0); Mean Corpuscular Volume 97.3 fL (80.0-100.0); Monocytes # (auto) 0.6 10 ^3/uL (0-1.3); Monocytes % (auto) 7.1 % (0.0-12.0); Neutrophils # (auto) 5.3 10 ^3/uL (1.6-8.6); Neutrophils % (auto) 66.3 % (37.0-80.0); Red Blood Cells 4.36 10^6/uL (4.5-5.90); Red Cell Distribution Width 13.7 % (11.8-14.3); White Blood Cell 8.1 10^3/uL (4.4-10.8)
[2021-11-06 15:46] LABS: Potassium 4.2 mmol/L (3.5-5.1)
[2021-11-06 15:52] LABS: Albumin 4.3 g/dL (3.4-5.0); BUN/Creatinine Ratio 14.4; Bilirubin, Total 0.6 mg/dL (0.2-1.0); Calcium 9.2 mg/dL (8.5-10.1); Urine Blood Negative /uL (Negative); Urine Specific Gravity 1.015 (1.001-1.035)
== END | disposition home or self-care (01) ==
LOC: LAB 10:18
PROVIDERS: ATTEND Internal Medicine Cardiovascular Disease
DX: Z79.899 Other long term (current) drug therapy (principal); Z01.89 Encounter for other specified special examinations
CPT/HCPCS: 36415; 80053; 81003; 85025

== ENCOUNTER → 2022-01-15 | Outpatient (CLI) | payer MEDICARE, OTHER | END | disposition home or self-care (01) | LOC: Rad HDHVI 09:03 | PROVIDERS: ATTEND Internal Medicine Cardiovascular Disease | DX: M81.0 Age-related osteoporosis without current pathological fracture (principal); M85.9 Disorder of bone density and structure, unspecified | CPT/HCPCS: 77078 ==

== ENCOUNTER → 2022-01-27 | Outpatient (CLI) | payer MEDICARE, OTHER | END | disposition home or self-care (01) | LOC: Rad HDHVI 09:54 | PROVIDERS: ATTEND Internal Medicine Cardiovascular Disease | DX: R06.02 Shortness of breath (principal); I10 Essential (primary) hypertension | CPT/HCPCS: 93306 ==

== ENCOUNTER → 2022-02-02 | Outpatient (CLI) | payer MEDICARE, OTHER ==
[~2022-02-02] VITALS: Ht 167.6 cm; Wt 76.2 kg
[~2022-02-02] MED LIST changes: +ADENOSINE 64 MG in GIVE UN-DILUTED 0 ML IV ONE; +ADENOSINE 90 MG/30 ML INJ IV ONE
== END | disposition home or self-care (01) ==
LOC: Rad HDHVI 13:07
PROVIDERS: ATTEND Internal Medicine Cardiovascular Disease
DX: I25.10 Atherosclerotic heart disease of native coronary artery without angina pectoris (principal); I10 Essential (primary) hypertension; E78.5 Hyperlipidemia, unspecified
CPT/HCPCS: 78452; 93005; 96374; 96375; A9500; J0153

== ENCOUNTER → 2022-06-14 | Outpatient (CLI) | payer MEDICARE, OTHER ==
[~2022-06-14] MED LIST changes: -ADENOSINE 64 MG in GIVE UN-DILUTED 0 ML IV ONE; -ADENOSINE 90 MG/30 ML INJ IV ONE
[2022-06-14 11:59] LABS: Basophils # (auto) 0.1 10 ^3/uL (0-0.2); Eosinophils # (auto) 0.6 10 ^3/uL (0-0.8)
[2022-06-14 12:02] LABS: Eosinophils % (auto) 8.4 % (0.0-7.0); Hematocrit 41.9 % (41.0-53.0); Hemoglobin 13.5 g/dL (13.5-17.5); Lymphocytes # (auto) 1.1 10 ^3/uL (0.4-5.4); Mean Corpuscular Hemoglobin 32.9 pg (28.0-32.0); Mean Corpuscular Hgb Conc. 32.4 g/dL (32.0-36.0); Mean Corpuscular Volume 101.7 fL (80.0-100.0); Monocytes % (auto) 12.8 % (0.0-12.0); Neutrophils # (auto) 4.7 10 ^3/uL (1.6-8.6); Neutrophils % (auto) 62.8 % (37.0-80.0); Nucleated Red Blood Cells % 0.1 %; Red Blood Cells 4.12 10^6/uL (4.5-5.90); Red Cell Distribution Width 13.8 % (11.8-14.3); White Blood Cell 7.5 10^3/uL (4.4-10.8)
[2022-06-14 14:00] LABS: Urine Blood Negative /uL (Negative); Urine Specific Gravity 1.016 (1.001-1.035)
[2022-06-14 16:19] LABS: BUN/Creatinine Ratio 13.4; Potassium 4.4 mmol/L (3.5-5.1)
[2022-06-14 16:20] LABS: Albumin 4.1 g/dL (3.4-5.0); Bilirubin, Total 0.7 mg/dL (0.2-1.0); Total Protein 7.6 g/dL (6.4-8.2)
[2022-06-14 20:24] LABS: Free T4 (Free Thyroxine) 0.96 ng/dL (0.89-1.76); Prostate Specific Antigen 0.25 ng/mL (0.0-4.0)
== END | disposition home or self-care (01) ==
LOC: LAB 09:43
PROVIDERS: ATTEND Internal Medicine Cardiovascular Disease
DX: R53.83 Other fatigue (principal); E55.9 Vitamin D deficiency, unspecified
CPT/HCPCS: 36415; 80053; 80061; 81003; 82306; 82607; 83036; 84153; 84403; 84439; 84443; 85025

== ENCOUNTER → 2023-08-25 | Outpatient (CLI) | payer MEDICARE, OTHER ==
[~2023-08-25] MED LIST changes: -AMLO-489 PO; +AMLO1TAB22 PO; -SIMV-8 PO; +SIMV20TA20 PO
== END | disposition home or self-care (01) ==
LOC: Rad HDHVI 13:49
PROVIDERS: ATTEND Internal Medicine Cardiovascular Disease
DX: I10 Essential (primary) hypertension (principal); R06.02 Shortness of breath
CPT/HCPCS: 93306

== ENCOUNTER → 2024-02-27 | Outpatient (CLI) | payer MEDICARE, OTHER | END | disposition home or self-care (01) | LOC: Rad HDHVI 11:35 | PROVIDERS: ATTEND Internal Medicine Cardiovascular Disease | DX: M47.816 Spondylosis without myelopathy or radiculopathy, lumbar region (principal); M51.36 Other intervertebral disc degeneration, lumbar region; I70.0 Atherosclerosis of aorta; M54.50 Low back pain, unspecified | CPT/HCPCS: 72131 ==

== ENCOUNTER → 2024-03-15 | Outpatient (CLI) | payer MEDICARE, OTHER | END | disposition home or self-care (01) | LOC: Rad HDHVI 10:50 | PROVIDERS: ATTEND Internal Medicine Cardiovascular Disease | DX: I11.0 Hypertensive heart disease with heart failure (principal); I50.23 Acute on chronic systolic (congestive) heart failure | CPT/HCPCS: 93306 ==

== ENCOUNTER → 2024-03-30 | Outpatient (CLI) | payer MEDICARE, OTHER ==
[~2024-03-30] VITALS: Ht 172.7 cm; Wt 74.8 kg
[~2024-03-30] MED LIST changes: +ADENOSINE 63 MG in GIVE UN-DILUTED 0 ML IV ONE; +ADENOSINE 90 MG/30 ML INJ IV ONE
== END | disposition home or self-care (01) ==
LOC: Rad HDHVI 09:12
PROVIDERS: ATTEND Internal Medicine Cardiovascular Disease
DX: I11.0 Hypertensive heart disease with heart failure (principal); I50.23 Acute on chronic systolic (congestive) heart failure; I49.1 Atrial premature depolarization; E78.00 Pure hypercholesterolemia, unspecified
CPT/HCPCS: 78452; 93005; 96374; 96375; A9500; J0153

== ENCOUNTER → 2024-06-18 | Outpatient (CLI) | payer MEDICARE, OTHER ==
[~2024-06-18] MED LIST changes: -ADENOSINE 63 MG in GIVE UN-DILUTED 0 ML IV ONE; -ADENOSINE 90 MG/30 ML INJ IV ONE; +IOHEXOL 350 MG/ML 100ML IJ ONE
[2024-06-18 10:18] VITALS: BP 139/82; PULSE 89; RESP 18; O2SAT 97
[2024-06-18 10:42] VITALS: BP 158/75; PULSE 91; RESP 18; O2SAT 97
--- NOTE | 2024-06-18 12:22 | DVH ---
History: BLADDER OBSTRUCTION Comparison Study: None available at time of dictation. Technique: Multidetector spiral CT of the pelvis was performed from iliac crests to pubic symphysis. 100 cc of omni 300 intravenous contrast was administered during this examination. Portal venous im aging was obtained. Axial, coronal and sagittal multiplanar reformats were performed by the aric dimas on a separate workstation. Radiation Dose : CT Dose: CTDI volume is 6.07 mGy. Dose-length product is 345.77 mGy*cm Findings: Visualized bowel: Small bowel and colon are normal in caliber and distribution. The appendix is not visualized; however, no secondary findings of acute appendicitis identified. Ascites: Absent Lymphadenopathy: No pelvic or mesenteric lymphadenopathy. Pelvis Wall and Mesentery: Fat containing umbilical hernia. Vasculature: Calcified atherosclerotic plaque. Pelvic Organs: Prostate is enlarged. Musculoskeletal: No aggressive focal bony lesions, acute fractures or dislocation. Bladder: Unremarkable IMPRESSION: 1. Mild prostatomegaly. Fat containing umbilical hernia. Otherwise unremarkable CT of the pelvis. HS:Y
== END | disposition home or self-care (01) ==
LOC: Rad HDHVI 10:02
PROVIDERS: ATTEND Internal Medicine Cardiovascular Disease
DX: N40.0 Benign prostatic hyperplasia without lower urinary tract symptoms (principal); K42.9 Umbilical hernia without obstruction or gangrene; N32.0 Bladder-neck obstruction; I70.90 Unspecified atherosclerosis
CPT/HCPCS: 72193; G0463; Q9967